=== PATIENT | male | born 1930 | race Caucasian/White ===

== ENCOUNTER → 2018-12-20 08:12 | Outpatient (CLI) | payer MEDICARE, BC ==
--- NOTE | 2018-12-24 12:26 | EC ---
PATIENT:BEBO QUINTERO DATE OF SERVICE: 12/20/18 SEX: M MEDICAL RECORD: [id number] DATE OF : 32 [facility] AGE OF PATIENT: 88 ADMISSION DATE: 12/20/18 REFERRING PHYSICIAN: INTERPRETING PHYSICIAN: SAADIA CEDEÑO MD ECHOCARDIOGRAM REPORT ECHO CHARGES 4 ECHO COMPLETE Date: 12/20/18 CLINICAL DIAGNOSIS: AORTIC STENOSIS ECHOCARDIOGRAPHIC MEASUREMENTS (adult normal given) AC root (d.<3.7cm) 3.0 cm LV Septum d (<1.2 cm> 1.2 cm Valve Excursion 0.80 cm LV Septum (systole) 1.5 cm Left Atria (s.<4.0cm> 5.2 cm LVPW d(<1.2cm) 1.3 cm RV (d.<2.3cm) 5.5 cm LVPW (sytole) 1.7 cm LV diastole(<5.6CM) 5.5 cm MV E-F(>70mm/sec) cm LV systole 3.6 cm LVOT Diameter 1.5 cm MV exc.(>10mm) 1.5 cm Est.ejection fraction (50-75%) % DOPPLER: LVIT cm/sec A 34.0 cm/sec E 121 cm/sec LA cm/sec RVSP 53 mmHg LVOT 95 cm/sec AOP1/2T 984 m/s Asc. Ao 453 cm/sec RVOT 79 cm/sec RA cm/sec PA 135 cm/sec AV Gradient Peak 82.18mmHg AV Mean 53.93mmHg AV Area 0.3 cm MV Gradient Peak 8.56 mmHg MV Mean 2.62 mmHg MV Area cm COMMENTS: Lapidarist: 2 BEE TAYLOR Glove Cuffer: 3 Dr. Zarco TAPE# PACS Pericardial Effusion N DATE OF SERVICE: 12/20/2018 Adequate 2-D echo, color-flow and spectral Doppler, and M-mode. LVH is present. LV internal dimensions are normal. Wall motion is normal. EF is 55%. Aortic valve is calcified with restricted leaflet motion. Peak gradient 82 mmHg, putting this in severe range. Left atrium is dilated at 5.2 cm. Mitral valve is thickened with mitral annular calcification. Moderate MR. Right-sided chambers are grossly normal. Moderate TR. ECHOCARDIOGRAM REPORT [id number] BEBO QUINTERO TRANSINT:[id number] Voice Confirmation ID: [id number] DOCUMENT ID: [id number] SAADIA CEDEÑO MD at 1226 CC: [id number] DICTATION DATE: 12/23/18 145 COMPUTER SPECIALIST: 12/23/18 1628 DEP CLI 12/20/18 [place] [id number] [place] [id number]
== END | disposition home or self-care (01) ==
LOC: D.HCCARDIO 08:12
PROVIDERS: ATTEND Internal Medicine Interventional Cardiology
DX: I35.0 Nonrheumatic aortic (valve) stenosis (principal)